=== PATIENT | female | born 1965 | race Asian ===

== ENCOUNTER 2016-05-26 04:07 | Emergency (ER) | payer BC ==
[~2016-05-26] VITALS: Ht 157.5 cm; Wt 52.0 kg
[2016-05-26 04:22] LABS: GLUCOSE COMMENT 1 Doctor Notified; GLUCOSE,POINT OF CARE 220 MG/DL (70-110)
[2016-05-26] MEDS ORDERED: METF500T4 PO (04:29)
[2016-05-26] MEDS ORDERED: PERTUSS(ACELL),DIPH,TET VAC/PF 0.5 ML VIAL IM ONE (05:00)
[2016-05-26 05:07] LABS: ANION GAP 14 mmol/L (8-16); CARBON DIOXIDE 23 mmol/L (22-29); CHLORIDE 107 mmol/L (98-107); GLOMERULAR FILTR. RATE CALC > 60 mL/min (>60); POTASSIUM 3.5 mmol/L (3.5-5.1); SODIUM SERUM 144 mmol/L (136-145); UREA NITROGEN, BLOOD 11 mg/dL (7-18)
[2016-05-26 05:13] LABS: ALANINE AMINOTRANSFERASE 23 U/L (12-78); ALBUMIN 3.5 g/dL (3.4-5.0); ASPARTATE AMINOTRANSFERASE 20 U/L (15-37); BILIRUBIN,TOTAL 0.2 mg/dL (0.1-1.0); TOTAL PROTEIN, SERUM 7.7 g/dL (6.4-8.2)
[2016-05-26 05:14] LABS: HEMATOCRIT 38.1 % (36-46); HEMOGLOBIN 12.2 g/dL (12.0-16.0); MEAN CORPUSCULAR HEMOGLOBIN 27.2 pg (26.0-34.0); MEAN CORPUSCULAR HGB CONC 31.9 G/dL (31.0-37.0); MEAN CORPUSCULAR VOLUME 85 fL (80-100); PLATELET COUNT (AUTO) 397 K/uL (150-450); RED BLOOD CELL COUNT(AUTO) 4.48 MIL/uL (4.00-5.20); RED CELL DISTRIBUTION WIDTH 14.8 % (11.5-14.5); WHITE BLOOD COUNT (AUTO) 8.5 K/uL (4.5-11.0)
[2016-05-26 05:26] VITALS: BP 129/66
[2016-05-26 05:45] LABS: LYMPHOCYTES % (MANUAL) 33 % (22-44); TOTAL CELLS COUNTED 100
[2016-05-26 05:46] LABS: EOSINOPHILS % (MANUAL) 6 % (1-6)
== END 2016-05-26 05:35 | disposition home or self-care (01) ==
LOC: EMS 04:08
DX: S61.512A Laceration without foreign body of left wrist, initial encounter (principal); R45.851 Suicidal ideations; E11.9 Type 2 diabetes mellitus without complications; F17.210 Nicotine dependence, cigarettes, uncomplicated; E03.9 Hypothyroidism, unspecified; Z71.6 Tobacco abuse counseling; Z88.6 Allergy status to analgesic agent; X78.8XXA Intentional self-harm by other sharp object, initial encounter; Y93.89 Activity, other specified; Y92.89 Other specified places as the place of occurrence of the external cause; Y99.8 Other external cause status
CPT/HCPCS: 36415; 80053; 80307; 82962; 85025; 90471; 90715; 99285; 99406; G0480

== ENCOUNTER 2016-06-17 05:25 | Day surgery (SDC) | payer BC ==
[~2016-06-17] VITALS: Ht 154.9 cm; Wt 52.7 kg
[~2016-06-17 05:25] MED LIST: LEVO88TA4 PO; METF500T4 PO
[2016-06-17] MEDS ORDERED: SODIUM CHLORIDE 0.9% 1,000 ML IV ONE ×2 (06:00→06:07)
[2016-06-17] MEDS ORDERED: ACET-2247 PO (06:26)
[2016-06-17] MEDS ORDERED: OMEG1CAP55 PO (06:26)
[2016-06-17 07:17] LABS: GLUCOSE,POINT OF CARE 186 MG/DL (70-110)
[2016-06-17] MEDS ORDERED: MIDAZOLAM HCL 2 MG/2 ML VIAL ONE (08:08)
[2016-06-17] MEDS ORDERED: TRIAMCINOLONE ACETONIDE 40 MG/ML VIAL ONE (08:08)
[2016-06-17] MEDS ORDERED: FentaNYL CITRATE-PF 100 MCG/2 ML VIAL ONE (08:08)
[2016-06-17] MEDS ORDERED: LIDOCAINE HCL/PF 2% 5 ML VIAL ONE (08:08)
[2016-06-17] MEDS ORDERED: BUPIVACAINE HCL/PF 0.75% 10 ML VIAL ONE (08:08)
[2016-06-17] MEDS ORDERED: IOHEXOL 300 MG/ML 10 ML VIAL ONE (08:08)
[2016-06-17] MEDS ORDERED: SODIUM BICARBONATE 50 MEQ/50 ML VIAL ONE (08:09)
[2016-06-17 08:11] VITALS: BP 129/81
[2016-06-17 08:41] VITALS: BP 115/82
[2016-06-17] MEDS ORDERED: LIDOCAINE 1% 30 ML/SOD BICARB 8.4% 4 ML SQ ONE (08:45)
[2016-06-17] MEDS ORDERED: BUPIVACAINE HCL/PF 0.75% 10 ML VIAL IARTIC ONE (08:45)
[2016-06-17] MEDS ORDERED: IOHEXOL 300 MG/ML 10 ML VIAL IARTIC ONE (08:45)
[2016-06-17] MEDS ORDERED: TRIAMCINOLONE ACETONIDE 40 MG/ML VIAL IARTIC ONE (08:45)
[2016-06-17] MEDS ORDERED: FentaNYL CITRATE-PF 100 MCG/2 ML VIAL IVP ONE (08:45)
[2016-06-17] MEDS ORDERED: MIDAZOLAM HCL 2 MG/2 ML VIAL IVP ONE (08:45)
== END 2016-06-17 10:05 | disposition home or self-care (01) ==
LOC: SDS 05:25
PROVIDERS: ATTEND Specialist
DX: M54.12 Radiculopathy, cervical region (principal); E11.9 Type 2 diabetes mellitus without complications; M25.519 Pain in unspecified shoulder; E03.9 Hypothyroidism, unspecified; Z79.82 Long term (current) use of aspirin; Z72.89 Other problems related to lifestyle; Z87.891 Personal history of nicotine dependence; Z98.890 Other specified postprocedural states
CPT/HCPCS: 62321; 82962; J2250; J3010; J3301; J3490; J7030; Q9967